=== PATIENT | male | born 1945 | race Asian ===

== ENCOUNTER 2017-08-04 16:51 | Emergency (ER) | payer OTHER, MEDICARE ==
[~2017-08-04] VITALS: Ht 172.7 cm; Wt 74.8 kg
[2017-08-04 16:51] VITALS: BP_SYST 148
[~2017-08-04 16:51] MED LIST: AMI200 PO; ASPI-1063 PO; COLC0.6T67 PO; FURO-149 PO; POTA20TA83 PO
[2017-08-04] MEDS ORDERED: LIDOCAINE 1% 10 MG/ML, 20 ML MDV INJ ONE (18:00)
[2017-08-04] MEDS ORDERED: LIDOCAINE 1%, 20 ML MDV 20 ML ONE (18:02)
[2017-08-04] MEDS ORDERED: BACITRACIN 1 GM OINT TP ONE (18:32)
[2017-08-04] MEDS ORDERED: DIPH-TET-PERTUS Vaccine 0.5 ML VIAL (ADACEL) I.M. ONE ×2 (18:35→18:45)
[2017-08-04 18:45] VITALS: BP_SYST 148
== END 2017-08-04 18:45 | disposition home or self-care (01) ==
LOC: SED 16:51
DX: S61.217A Laceration without foreign body of left little finger without damage to nail, initial encounter (principal); S61.412A Laceration without foreign body of left hand, initial encounter; I10 Essential (primary) hypertension; Z98.890 Other specified postprocedural states; Z79.82 Long term (current) use of aspirin; Z79.899 Other long term (current) drug therapy; W01.0XXA Fall on same level from slipping, tripping and stumbling without subsequent striking against object, initial encounter; Y93.89 Activity, other specified; Y92.89 Other specified places as the place of occurrence of the external cause; Y99.8 Other external cause status
CPT/HCPCS: 12002; 90471; 90715; 99283; J2001

== ENCOUNTER 2017-08-11 10:50 | Emergency (ER) | payer OTHER, MEDICARE ==
[~2017-08-11] VITALS: Ht 172.7 cm; Wt 73.9 kg
[2017-08-11 10:55] VITALS: BP_SYST 143
--- NOTE | 2017-08-11 10:58 | NUR ---
Pt to bed 7
--- NOTE | 2017-08-11 11:00 | NUR ---
ER at bedside examining patient.
--- NOTE | 2017-08-11 11:01 | NUR ---
PT ACCOMPANIED BY HIS DAUGHTER. BANDAGE REMOVED FROM HIS LEFT HAND. 2 SUTURES SEEN ON THE PALM. ONE IN THE MIDDLE OF THE PALM AND ONE NEXT TO BASE OF LEFT THUMB. CLEANED OUT DRY BLOOD. 15 SUTURES REMOVED CAREFULLY. CLEANSED WOUND WITH SALINE, PAT DRY, AND SWABBED WITH IODINE, STERISTRIPS APPLIED AND COVERED WITH GAUZE. PT TOLERATED WELL.
--- NOTE | 2017-08-11 11:55 | NUR ---
Patient given written and verbal discharge instructions and verbalizes understanding. ER MD SUGGS discussed with patient the results and treatment provided. Patient in stable condition. ID arm band removed. Patient educated on pain management and to follow up with PMD. Pain Scale 0. Opportunity for questions provided and answered. Medication side effect fact sheet provided.
== END 2017-08-11 11:55 | disposition home or self-care (01) ==
LOC: SED 10:50
DX: S61.412D Laceration without foreign body of left hand, subsequent encounter (principal); I10 Essential (primary) hypertension; Z95.1 Presence of aortocoronary bypass graft; Z79.82 Long term (current) use of aspirin; Z79.899 Other long term (current) drug therapy; X58.XXXD Exposure to other specified factors, subsequent encounter
CPT/HCPCS: 99283